=== PATIENT | female | born 1960 | race Two or more races ===

== ENCOUNTER 2024-05-10 17:39 | Inpatient (IN) | payer OTHER, MEDICAID ==
[~2024-05-10] VITALS: Ht 167.6 cm; Wt 121.1 kg
[2024-05-10 19:31] LABS: Basophils # (auto) 0.1 10 ^3/uL (0-0.2); Basophils % (auto) 1.3 % (0.0-2.0); Eosinophils # (auto) 0.3 10 ^3/uL (0-0.8); Eosinophils % (auto) 4.6 % (0.0-7.0); Hematocrit 24.4 % (36.0-46.0); Hemoglobin 8.2 g/dL (12.2-16.2); Lymphocytes # (auto) 1.1 10 ^3/uL (0.4-5.4); Lymphocytes % (auto) 15.3 % (10.0-50.0); Mean Corpuscular Hemoglobin 31.1 pg (28.0-32.0); Mean Corpuscular Hgb Conc. 33.6 g/dL (32.0-36.0); Mean Corpuscular Volume 92.7 fL (80.0-100.0); Monocytes # (auto) 0.5 10 ^3/uL (0-1.3); Monocytes % (auto) 7.5 % (0.0-12.0); Neutrophils % (auto) 71.3 % (37.0-80.0); Nucleated Red Blood Cells % 0.1 %; Red Blood Cells 2.63 10^6/uL (4.0-5.20); Red Cell Distribution Width 15.1 % (11.8-14.3)
[2024-05-10 19:34] LABS: Chloride 111 mmol/L (98-107); Sodium 141 mmol/L (136-145)
[2024-05-10 19:35] LABS: Anion Gap 8 (5-15); Carbon Dioxide 22 mmol/L (20-30)
[2024-05-10 19:36] LABS: Calcium 9.2 mg/dL (8.7-10.4)
[2024-05-10 19:40] LABS: Glucose 167 mg/dL (74-106)
[2024-05-10 19:41] LABS: BUN/Creatinine Ratio 16.1 (10.0-20.0); Blood Urea Nitrogen 72 mg/dL (9-23)
[2024-05-10 20:45] VITALS: PULSE 74; RESP 14; O2SAT 96
[2024-05-10] MEDS ORDERED: ACETAMINOPHEN 325 MG TAB PO PRN (21:15)
[2024-05-10] MEDS ORDERED: DEXTROSE (50%) 50ML SYRG IV PRN (21:15)
[2024-05-10] MEDS ORDERED: ONDANSETRON HCL 4 MG/2 ML VIAL IV PRN ×2 (21:15)
[2024-05-10] MEDS: InsuLIN REG 1unit/0.01ml Soln (100units/ml) SC SCH (22:00)
[2024-05-10] MEDS: RIVAROXABAN 2.5 MG TAB PO SCH (22:00)
[2024-05-10] MEDS: ACCU-CHEK COMFORT CURVE STRIP VI SCH (22:00)
[2024-05-10] MEDS: hydrALAZINE HCL 25 MG TAB PO SCH (22:06)
[2024-05-10] MEDS: cloNIDine HCL 0.1 MG TAB PO ONE (23:30)
[2024-05-11] VITALS (23 sets, daily range): BP systolic 101–176; BP diastolic 34–74; PULSE 41–64; RESP 11–21; TEMP 97.1–97.7; O2SAT 86–99
[2024-05-11] MEDS ORDERED: CHOL20007 PO (05:17)
[2024-05-11] MEDS ORDERED: ATOR20TA50 PO (05:21)
[2024-05-11] MEDS ORDERED: ALL100T PO (05:21)
[2024-05-11] MEDS ORDERED: HYDR50TA47 PO (05:21)
[2024-05-11] MEDS ORDERED: LINA145C OR (05:21)
[2024-05-11] MEDS ORDERED: LUBI24CA7 PO (05:21)
[2024-05-11] MEDS ORDERED: RIV20T PO (05:22)
[2024-05-11] MEDS ORDERED: PYRI1TAB3 PO (05:24)
[2024-05-11] MEDS ORDERED: SEVE800T8 PO (05:27)
[2024-05-11] MEDS ORDERED: FURO1TAB31 PO (05:27)
[2024-05-11] MEDS ORDERED: DILT120T8 PO (05:27)
[2024-05-11] MEDS ORDERED: PIO30T PO (05:27)
[2024-05-11] MEDS ORDERED: ACET-1304 PO (05:29)
[2024-05-11] MEDS ORDERED: GLIP10TA9 PO (05:29)
[2024-05-11] MEDS: InsuLIN REG 1unit/0.01ml Soln (100units/ml) SC SCH (06:16)
[2024-05-11 06:50] LABS: Basophils # (auto) 0.1 10 ^3/uL (0-0.2); Basophils % (auto) 1.5 % (0.0-2.0); Eosinophils # (auto) 0.3 10 ^3/uL (0-0.8); Eosinophils % (auto) 4.3 % (0.0-7.0); Hemoglobin 8.7 g/dL (12.2-16.2); Lymphocytes % (auto) 14.6 % (10.0-50.0); Mean Corpuscular Hemoglobin 32.2 pg (28.0-32.0); Mean Corpuscular Hgb Conc. 33.5 g/dL (32.0-36.0); Mean Corpuscular Volume 96.1 fL (80.0-100.0); Monocytes # (auto) 0.5 10 ^3/uL (0-1.3); Monocytes % (auto) 6.7 % (0.0-12.0); Neutrophils % (auto) 72.9 % (37.0-80.0); Nucleated Red Blood Cells % 0.2 %; Red Blood Cells 2.71 10^6/uL (4.0-5.20); Red Cell Distribution Width 15.9 % (11.8-14.3); White Blood Cell 6.9 10^3/uL (4.4-10.8)
[2024-05-11 07:05] LABS: Alanine Aminotransferase 11 U/L (7-40); Albumin 3.6 g/dL (3.2-4.8); Alkaline Phosphatase 113 U/L (46-116); Anion Gap 7 (5-15); Aspartate Aminotransferase 9 U/L (13-40); BUN/Creatinine Ratio 15.8 (10.0-20.0); Blood Urea Nitrogen 69 mg/dL (9-23); Calcium 9.1 mg/dL (8.5-10.1); Carbon Dioxide 21 mmol/L (20-30); Chloride 111 mmol/L (98-107); Glucose 151 mg/dL (74-106); Potassium 5.2 mmol/L (3.5-5.1); Sodium 139 mmol/L (136-145)
[2024-05-11 07:06] LABS: Bilirubin, Total 0.3 mg/dL (0.2-1.0); Total Protein 6.2 g/dL (5.7-8.2)
[2024-05-11] MEDS: SEVELAMER 800 MG TAB PO SCH (08:00)
[2024-05-11 10:49] LABS: % Iron Saturation 22.4 % (15-50)
[2024-05-11] MEDS: NIFEdipine ER 30 MG TAB PO SCH (10:50)
[2024-05-11] MEDS: dilTIAZem HCL 180MG ER CAP PO SCH (10:50)
[2024-05-11] MEDS: FUROSEMIDE 40 MG TAB PO SCH (10:51)
[2024-05-11] MEDS ORDERED: DILT-102 PO (14:19)
[2024-05-11] MEDS ORDERED: RIVA2.5T PO (14:19)
[2024-05-11] MEDS ORDERED: FURO80TA3 PO (14:19)
[2024-05-11] MEDS ORDERED: HYDR25TA88 PO (14:19)
[2024-05-11] MEDS ORDERED: LOSA-534 PO (14:32)
[2024-05-11] MEDS ORDERED: DICL5GEL TD (14:32)
[2024-05-11] MEDS ORDERED: NIFE1TAB30 PO (14:32)
[2024-05-11] MEDS ORDERED: LACT10SO60 PO (14:32)
[2024-05-11] MEDS ORDERED: ERGO1CAP12 PO (14:32)
[2024-05-11] MEDS ORDERED: CALC-606 PO (14:32)
[2024-05-11] MEDS ORDERED: METO2.5T PO (14:32)
[2024-05-11] MEDS ORDERED: SODI10PA PO (14:32)
[2024-05-11] MEDS ORDERED: [UNRECOGNIZED DRUG - CODE] PO (14:32)
[2024-05-11] MEDS ORDERED: [UNRECOGNIZED DRUG - CODE] PO (14:32)
[2024-05-11] MEDS ORDERED: LID35TP EX (14:32)
[2024-05-11 18:21] LABS: Basophils # (auto) 0.1 10 ^3/uL (0-0.2); Basophils % (auto) 1.2 % (0.0-2.0); Eosinophils # (auto) 0.4 10 ^3/uL (0-0.8); Eosinophils % (auto) 4.9 % (0.0-7.0); Hematocrit 25.5 % (36.0-46.0); Hemoglobin 8.6 g/dL (12.2-16.2); Lymphocytes % (auto) 12.1 % (10.0-50.0); Mean Corpuscular Hemoglobin 31.3 pg (28.0-32.0); Mean Corpuscular Hgb Conc. 33.7 g/dL (32.0-36.0); Monocytes # (auto) 0.5 10 ^3/uL (0-1.3); Monocytes % (auto) 6.4 % (0.0-12.0); Neutrophils # (auto) 6.2 10 ^3/uL (1.6-8.6); Neutrophils % (auto) 75.4 % (37.0-80.0); Red Blood Cells 2.74 10^6/uL (4.0-5.20); Red Cell Distribution Width 15.4 % (11.8-14.3); White Blood Cell 8.2 10^3/uL (4.4-10.8)
[2024-05-11] MEDS: ATROPINE SULF 1 MG/10ml SYR IV ONE (18:22)
[2024-05-11] MEDS: SODIUM ZIRCONIUM CYCL 10 GM PAK PO ONE (18:30)
[2024-05-11 18:41] LABS: Alanine Aminotransferase 11 U/L (7-40); Albumin 3.7 g/dL (3.2-4.8); Alkaline Phosphatase 119 U/L (46-116); Anion Gap 8 (5-15); Aspartate Aminotransferase < 8 U/L (13-40); BUN/Creatinine Ratio 16.9 (10.0-20.0); Blood Urea Nitrogen 75 mg/dL (9-23); Carbon Dioxide 20 mmol/L (20-30); Chloride 108 mmol/L (98-107); Glucose 155 mg/dL (74-106); Magnesium 1.8 mg/dL (1.6-2.6); Phosphorus 5.4 mg/dL (2.4-5.1); Potassium 5.1 mmol/L (3.5-5.1); Sodium 136 mmol/L (136-145)
[2024-05-11 18:42] LABS: Bilirubin, Total 0.3 mg/dL (0.2-1.0); Total Protein 6.3 g/dL (5.7-8.2)
[2024-05-11] MEDS: EPOETIN ALFA-EPBX 4,000 UNIT/ML VIAL SC ONE (21:20)
[2024-05-11] MEDS: SODIUM ZIRCONIUM CYCL 10 GM PAK PO SCH (21:21)
[2024-05-11] MEDS: ACETAMINOPHEN 325 MG TAB PO PRN (23:07)
[2024-05-12] VITALS (48 sets, daily range): BP systolic 104–185; BP diastolic 30–98; PULSE 40–88; RESP 10–21; TEMP 97.6–98.8; O2SAT 87–100
[2024-05-12 06:54] LABS: Basophils # (auto) 0.1 10 ^3/uL (0-0.2); Basophils % (auto) 1.1 % (0.0-2.0); Eosinophils # (auto) 0.4 10 ^3/uL (0-0.8); Eosinophils % (auto) 4.5 % (0.0-7.0); Hematocrit 25.5 % (36.0-46.0); Hemoglobin 8.5 g/dL (12.2-16.2); Lymphocytes # (auto) 1.1 10 ^3/uL (0.4-5.4); Lymphocytes % (auto) 13.4 % (10.0-50.0); Mean Corpuscular Hemoglobin 31.9 pg (28.0-32.0); Mean Corpuscular Hgb Conc. 33.3 g/dL (32.0-36.0); Mean Corpuscular Volume 95.9 fL (80.0-100.0); Monocytes # (auto) 0.7 10 ^3/uL (0-1.3); Monocytes % (auto) 8.4 % (0.0-12.0); Neutrophils # (auto) 6.1 10 ^3/uL (1.6-8.6); Neutrophils % (auto) 72.6 % (37.0-80.0); Nucleated Red Blood Cells % 0.1 %; Red Blood Cells 2.66 10^6/uL (4.0-5.20); Red Cell Distribution Width 15.8 % (11.8-14.3); White Blood Cell 8.4 10^3/uL (4.4-10.8)
[2024-05-12 07:06] LABS: Alanine Aminotransferase 11 U/L (7-40); Albumin 3.7 g/dL (3.2-4.8); Alkaline Phosphatase 120 U/L (46-116); Anion Gap 9 (5-15); Aspartate Aminotransferase < 8 U/L (13-40); BUN/Creatinine Ratio 15.7 (10.0-20.0); Bilirubin, Total 0.3 mg/dL (0.2-1.0); Blood Urea Nitrogen 75 mg/dL (9-23); Calcium 9.1 mg/dL (8.5-10.1); Carbon Dioxide 19 mmol/L (20-30); Chloride 105 mmol/L (98-107); Glucose 163 mg/dL (74-106); Sodium 133 mmol/L (136-145); Total Protein 6.3 g/dL (5.7-8.2)
[2024-05-12] MEDS: ISOPROTERENOL HCL INJECTION 1 MG in D5W 5% 250 ML IV SCH ×2 (08:21→14:30)
[2024-05-12 09:45] LABS: INR 1.05 (0.9-1.15); Partial Thromboplastin Time 28.4 SEC (24.5-34.5); Prothrombin Time 11.1 sec (9.3-11.8)
[2024-05-12 20:23] LABS: Sodium Urine 24 mmol/L (40-220)
[2024-05-12 20:26] LABS: Urine Amorphous Crystal FEW /hpf (None Seen); Urine Bacteria FEW /hpf (None Seen); Urine Blood 1+ /uL (Negative); Urine Clarity Turbid (Clear); Urine Color Colorless (Yellow); Urine Protein, UAD 3+ (Negative); Urine Specific Gravity 1.014 (1.001-1.035); Urine Urobilinogen Normal (Negative); Urine WBC 21 /hpf (0 - 5)
[2024-05-12 20:30] LABS: Amphetamine Screen, Urine Neg (NEGATIVE); Benzodiazephine Screen, Urine Neg (NEGATIVE)
[2024-05-12 20:31] LABS: Barbiturate Scree,Urine Neg (NEGATIVE); Cannabinoid Screen, Urine Neg (NEGATIVE); Cocaine Screen, Urine Neg (NEGATIVE); Creatinine, Urine 94.58 mg/dL (30.0-125.0); Opiate Scree,Urine Neg (NEGATIVE); Phencyclidine Screen, Urine Neg (NEGATIVE)
[2024-05-12 20:34] LABS: Protein, Urine 735.2 mg/dL (0.0-11.9); Urine Protein/Creatinine Ratio 7.77
[2024-05-13] VITALS (19 sets, daily range): BP systolic 140–218; BP diastolic 48–90; PULSE 67–78; RESP 14–20; TEMP 97.8–99.2; O2SAT 80–100
[2024-05-13 06:41] LABS: Basophils # (auto) 0.1 10 ^3/uL (0-0.2); Basophils % (auto) 0.8 % (0.0-2.0); Eosinophils # (auto) 0.3 10 ^3/uL (0-0.8); Eosinophils % (auto) 3.5 % (0.0-7.0); Mean Corpuscular Hgb Conc. 33.5 g/dL (32.0-36.0); Monocytes # (auto) 0.7 10 ^3/uL (0-1.3); Monocytes % (auto) 7.6 % (0.0-12.0); Red Cell Distribution Width 15.4 % (11.8-14.3)
[2024-05-13 06:42] LABS: Hematocrit 25.3 % (36.0-46.0); Hemoglobin 8.5 g/dL (12.2-16.2); Lymphocytes # (auto) 1.5 10 ^3/uL (0.4-5.4); Lymphocytes % (auto) 16.8 % (10.0-50.0); Mean Corpuscular Hemoglobin 31.2 pg (28.0-32.0); Neutrophils # (auto) 6.6 10 ^3/uL (1.6-8.6); Neutrophils % (auto) 71.3 % (37.0-80.0); Red Blood Cells 2.73 10^6/uL (4.0-5.20); White Blood Cell 9.2 10^3/uL (4.4-10.8)
[2024-05-13] MEDS: SODIUM CHL 0.9% 1000 ML BAG XX ONE (07:00)
[2024-05-13 07:02] LABS: Alanine Aminotransferase 10 U/L (7-40); Albumin 3.7 g/dL (3.2-4.8); Alkaline Phosphatase 120 U/L (46-116); Anion Gap 9 (5-15); Aspartate Aminotransferase 10 U/L (13-40); BUN/Creatinine Ratio 13.7 (10.0-20.0); Blood Urea Nitrogen 74 mg/dL (9-23); Calcium 8.8 mg/dL (8.5-10.1); Carbon Dioxide 20 mmol/L (20-30); Chloride 104 mmol/L (98-107); Glucose 130 mg/dL (74-106); Magnesium 1.9 mg/dL (1.6-2.6); Potassium 4.2 mmol/L (3.5-5.1); Sodium 133 mmol/L (136-145)
[2024-05-13 07:03] LABS: Bilirubin, Total 0.4 mg/dL (0.2-1.0); Phosphorus 6.5 mg/dL (2.4-5.1); Total Protein 6.3 g/dL (5.7-8.2)
[2024-05-13] MEDS: ANGIOMAX 250 MG VIAL IV ONE (14:34)
[2024-05-13] MEDS: MIDAZOLAM HCL 2MG/2ML 2ml VIAL (1mg/ml) ONE (14:35)
[2024-05-13] MEDS: LIDOCAINE 2%HCL (LOCAL ANESTH.) INJ 20ML MDV ONE (14:35)
[2024-05-13] MEDS: HEPARIN SODIUM (PORCINE) 5000 UNITS/ML 1ML VIAL ONE (14:35)
[2024-05-13] MEDS: IODIXANOL 320MG/ML 100ML BTL IV ONE (14:35)
[2024-05-13] MEDS: fentaNYL CITRATE 100 MCG/2 ML VL ONE (14:35)
[2024-05-13] MEDS: VERAPAMIL 2.5MG/ML INJ 2ML VIAL IV ONE (14:36)
[2024-05-13] MEDS: ceFAZolin 1GM/50ML 50 ML IV ONE (15:01)
[2024-05-13] MEDS: hydrALAZINE HCL 20 MG/ML VL IV PRN (17:26)
[2024-05-13] MEDS: EPOETIN ALFA-EPBX 4,000 UNIT/ML VIAL SC ONE (20:39)
[2024-05-14] VITALS (13 sets, daily range): BP systolic 144–185; BP diastolic 50–66; PULSE 66–79; RESP 12–19; TEMP 98.2–99.1; O2SAT 95–100
[2024-05-14 05:04] LABS: Basophils # (auto) 0.1 10 ^3/uL (0-0.2); Eosinophils # (auto) 0.3 10 ^3/uL (0-0.8); Lymphocytes # (auto) 0.6 10 ^3/uL (0.4-5.4); Monocytes # (auto) 0.6 10 ^3/uL (0-1.3); Neutrophils # (auto) 5.5 10 ^3/uL (1.6-8.6)
[2024-05-14 05:06] LABS: Basophils % (auto) 1.2 % (0.0-2.0); Eosinophils % (auto) 3.7 % (0.0-7.0); Hematocrit 24.1 % (36.0-46.0); Hemoglobin 8.3 g/dL (12.2-16.2); Lymphocytes % (auto) 8.6 % (10.0-50.0); Mean Corpuscular Hgb Conc. 34.6 g/dL (32.0-36.0); Mean Corpuscular Volume 92.4 fL (80.0-100.0); Monocytes % (auto) 8.7 % (0.0-12.0); Neutrophils % (auto) 77.8 % (37.0-80.0); Red Cell Distribution Width 14.8 % (11.8-14.3)
[2024-05-14 05:31] LABS: Alanine Aminotransferase 11 U/L (7-40); Albumin 3.4 g/dL (3.2-4.8); Alkaline Phosphatase 106 U/L (46-116); Anion Gap 8 (5-15); Aspartate Aminotransferase 8 U/L (13-40); BUN/Creatinine Ratio 11.9 (10.0-20.0); Bilirubin, Total 0.4 mg/dL (0.2-1.0); Calcium 8.7 mg/dL (8.7-10.4); Carbon Dioxide 26 mmol/L (20-30); Chloride 104 mmol/L (98-107); Glucose 94 mg/dL (74-106); Magnesium 1.9 mg/dL (1.6-2.6); Potassium 3.5 mmol/L (3.5-5.1); Sodium 138 mmol/L (136-145); Total Protein 5.8 g/dL (5.7-8.2)
[2024-05-14 05:35] LABS: Blood Urea Nitrogen 47 mg/dL (9-23)
[2024-05-14] MEDS: LACTULOSE 20Gm/30ML SOLN PO PRN (10:27)
[2024-05-14] MEDS ORDERED: diphenhdrAMINE HCL 50 MG/1 ML VL IV PRN (18:30)
[2024-05-15] VITALS (14 sets, daily range): BP systolic 129–170; BP diastolic 52–80; PULSE 64–75; RESP 17–20; TEMP 97.9–98.7; O2SAT 89–100
[2024-05-15] MEDS: diphenhdrAMINE HCL 50 MG/1 ML VL IV PRN (06:40)
[2024-05-15] MEDS: LOSARTAN POTASSIUM 50 MG TAB PO SCH (09:32)
[2024-05-16] VITALS (7 sets, daily range): BP systolic 139–168; BP diastolic 46–69; PULSE 68–77; RESP 16–20; TEMP 98.1–98.7; O2SAT 93–100
[2024-05-16] MEDS: diphenhdrAMINE HCL 50 MG/1 ML VL IV ONE (08:03)
[2024-05-16 08:43] LABS: Hepatitis B Surface Antigen Negative (Negative)
[2024-05-16 08:44] LABS: Basophils # (auto) 0 10 ^3/uL (0-0.2); Basophils % (auto) 0.3 % (0.0-2.0); Eosinophils # (auto) 0 10 ^3/uL (0-0.8); Eosinophils % (auto) 0.4 % (0.0-7.0); Hematocrit 36.6 % (36.0-46.0); Hemoglobin 11.8 g/dL (12.2-16.2); Lymphocytes # (auto) 0.9 10 ^3/uL (0.4-5.4); Lymphocytes % (auto) 13.9 % (10.0-50.0); Mean Corpuscular Hemoglobin 27.3 pg (28.0-32.0); Mean Corpuscular Hgb Conc. 32.3 g/dL (32.0-36.0); Mean Corpuscular Volume 84.4 fL (80.0-100.0); Monocytes # (auto) 0.4 10 ^3/uL (0-1.3); Monocytes % (auto) 7.3 % (0.0-12.0); Neutrophils # (auto) 4.8 10 ^3/uL (1.6-8.6); Neutrophils % (auto) 78.1 % (37.0-80.0); Nucleated Red Blood Cells % 0.1 %; Red Blood Cells 4.33 10^6/uL (4.0-5.20); Red Cell Distribution Width 19.6 % (11.8-14.3); White Blood Cell 6.2 10^3/uL (4.4-10.8)
[2024-05-16 08:49] LABS: Alanine Aminotransferase 12 U/L (7-40); Alkaline Phosphatase 51 U/L (46-116); Anion Gap 4 (5-15); Calcium 9.7 mg/dL (8.7-10.4); Carbon Dioxide 40 mmol/L (20-30); Chloride 96 mmol/L (98-107); Potassium 3.1 mmol/L (3.5-5.1); Sodium 140 mmol/L (136-145)
[2024-05-16 08:50] LABS: Glucose 273 mg/dL (74-106)
[2024-05-16 08:51] LABS: Aspartate Aminotransferase 17 U/L (13-40); BUN/Creatinine Ratio 15.6 (10.0-20.0); Blood Urea Nitrogen 15 mg/dL (9-23)
[2024-05-16 08:52] LABS: Albumin 3.8 g/dL (3.2-4.8)
[2024-05-16 08:53] LABS: Bilirubin, Total 0.5 mg/dL (0.2-1.0); Total Protein 6.5 g/dL (5.7-8.2)
[2024-05-16 09:03] LABS: Hepatitis A Ab IgM Negative; Hepatitis B Core IgM Negative
[2024-05-16 09:05] LABS: Hepatitis C Antibody Negative (Negative)
[2024-05-16] MEDS: amLODIPine BESYLATE 5 MG TAB PO ONE (09:15)
[2024-05-16] MEDS: POTASSIUM CHL 20 Meq TABLET PO SCH (09:15)
[2024-05-16] MEDS: POTASSIUM CHL 20 Meq TABLET PO ONE (09:15)
[2024-05-16] MEDS ORDERED: diphenhdrAMINE-ZINC ACETATE 1 APPLIC APPL TOP PRN (09:45)
[2024-05-16 10:04] LABS: Basophils # (auto) 0.1 10 ^3/uL (0-0.2); Basophils % (auto) 1.3 % (0.0-2.0); Eosinophils # (auto) 0.3 10 ^3/uL (0-0.8); Eosinophils % (auto) 3.9 % (0.0-7.0); Hematocrit 24.8 % (36.0-46.0); Hemoglobin 8.7 g/dL (12.2-16.2); Lymphocytes # (auto) 0.8 10 ^3/uL (0.4-5.4); Lymphocytes % (auto) 9.1 % (10.0-50.0); Mean Corpuscular Hemoglobin 32.1 pg (28.0-32.0); Mean Corpuscular Hgb Conc. 34.9 g/dL (32.0-36.0); Mean Corpuscular Volume 91.9 fL (80.0-100.0); Monocytes # (auto) 0.6 10 ^3/uL (0-1.3); Monocytes % (auto) 7.2 % (0.0-12.0); Neutrophils # (auto) 6.7 10 ^3/uL (1.6-8.6); Neutrophils % (auto) 78.5 % (37.0-80.0); Red Cell Distribution Width 14.8 % (11.8-14.3); White Blood Cell 8.5 10^3/uL (4.4-10.8)
[2024-05-16 10:31] LABS: Albumin 3.6 g/dL (3.2-4.8); Alkaline Phosphatase 116 U/L (46-116); Anion Gap 6 (5-15); Aspartate Aminotransferase < 8 U/L (13-40); BUN/Creatinine Ratio 11.9 (10.0-20.0); Bilirubin, Total 0.4 mg/dL (0.2-1.0); Calcium 8.9 mg/dL (8.7-10.4); Carbon Dioxide 26 mmol/L (20-30); Chloride 102 mmol/L (98-107); Glucose 171 mg/dL (74-106); Potassium 4.1 mmol/L (3.5-5.1); Total Protein 6.3 g/dL (5.7-8.2)
[2024-05-16 10:35] LABS: Sodium 134 mmol/L (136-145)
[2024-05-16 10:37] LABS: Alanine Aminotransferase < 9 U/L (7-40); Blood Urea Nitrogen 54 mg/dL (9-23)
[2024-05-16] MEDS: hydrALAZINE HCL 25 MG TAB PO SCH (15:30)
[2024-05-16] MEDS: diphenhdrAMINE HCL 25 MG CAP PO PRN (15:30)
[2024-05-16] MEDS: LOSARTAN POTASSIUM 50 MG TAB PO ONE (15:30)
[2024-05-17] VITALS (8 sets, daily range): BP systolic 122–159; BP diastolic 46–62; PULSE 64–79; RESP 16–19; TEMP 36.6; O2SAT 91–98
[2024-05-17 09:04] LABS: Basophils # (auto) 0.1 10 ^3/uL (0-0.2); Eosinophils # (auto) 0.4 10 ^3/uL (0-0.8); Hemoglobin 8.3 g/dL (12.2-16.2); Monocytes # (auto) 0.8 10 ^3/uL (0-1.3)
[2024-05-17 09:06] LABS: Basophils % (auto) 1.4 % (0.0-2.0); Eosinophils % (auto) 4.6 % (0.0-7.0); Hematocrit 24.4 % (36.0-46.0); Lymphocytes % (auto) 11.4 % (10.0-50.0); Mean Corpuscular Hemoglobin 31.5 pg (28.0-32.0); Mean Corpuscular Hgb Conc. 34.2 g/dL (32.0-36.0); Mean Corpuscular Volume 92.2 fL (80.0-100.0); Monocytes % (auto) 8.6 % (0.0-12.0); Neutrophils # (auto) 6.5 10 ^3/uL (1.6-8.6); Nucleated Red Blood Cells % 0.1 %; Red Blood Cells 2.65 10^6/uL (4.0-5.20); Red Cell Distribution Width 15.2 % (11.8-14.3); White Blood Cell 8.8 10^3/uL (4.4-10.8)
[2024-05-17] MEDS: LOSARTAN POTASSIUM 50 MG TAB PO SCH (09:21)
[2024-05-17 09:27] LABS: Albumin 3.6 g/dL (3.2-4.8); Alkaline Phosphatase 108 U/L (46-116); Anion Gap 7 (5-15); Aspartate Aminotransferase < 8 U/L (13-40); BUN/Creatinine Ratio 11.7 (10.0-20.0); Blood Urea Nitrogen 61 mg/dL (9-23); Calcium 8.9 mg/dL (8.7-10.4); Carbon Dioxide 25 mmol/L (20-30); Chloride 102 mmol/L (98-107); Glucose 114 mg/dL (74-106); Potassium 4.3 mmol/L (3.5-5.1); Sodium 134 mmol/L (136-145)
[2024-05-17 09:28] LABS: Bilirubin, Total 0.3 mg/dL (0.2-1.0); Total Protein 6.2 g/dL (5.7-8.2)
[2024-05-17 09:29] LABS: Alanine Aminotransferase < 9 U/L (7-40)
[2024-05-17 13:06] LABS: Magnesium 2.1 mg/dL (1.6-2.6)
[2024-05-17 13:08] LABS: Phosphorus 5.2 mg/dL (2.4-5.1)
[2024-05-17 16:58] LABS: Basophils # (auto) 0.1 10 ^3/uL (0-0.2); Eosinophils # (auto) 0.3 10 ^3/uL (0-0.8); Hemoglobin 8.3 g/dL (12.2-16.2); Lymphocytes # (auto) 0.8 10 ^3/uL (0.4-5.4); Mean Corpuscular Hgb Conc. 34.7 g/dL (32.0-36.0); Monocytes # (auto) 0.5 10 ^3/uL (0-1.3); Nucleated Red Blood Cells % 0.1 %
[2024-05-17 16:59] LABS: Basophils % (auto) 1.1 % (0.0-2.0); Eosinophils % (auto) 4.6 % (0.0-7.0); Hematocrit 23.8 % (36.0-46.0); Lymphocytes % (auto) 11.5 % (10.0-50.0); Mean Corpuscular Hemoglobin 31.8 pg (28.0-32.0); Mean Corpuscular Volume 91.6 fL (80.0-100.0); Monocytes % (auto) 7.5 % (0.0-12.0); Neutrophils # (auto) 5.2 10 ^3/uL (1.6-8.6); Neutrophils % (auto) 75.3 % (37.0-80.0); Red Cell Distribution Width 14.8 % (11.8-14.3); White Blood Cell 6.9 10^3/uL (4.4-10.8)
[2024-05-17] MEDS: SODIUM CHL 0.9% 1000 ML BAG XX ONE (18:56)
[2024-05-17] MEDS: EPOETIN ALFA-EPBX 10,000 UNIT/1ML VIAL SC ONE (20:45)
== END 2024-05-17 21:12 | disposition home or self-care (01) | DRG 291 ==
LOC: ER 17:39 → EDBD 17:39 → EAST 21:28 → OVERFLOW 21:28 → EAST 05-11 02:04 → TELE-EAST 05-11 17:43 → ICU CENTRL 05-11 18:43 → DOU IN ICU 05-13 21:24 → TELE-EAST 05-14 18:32
PROVIDERS: ADMIT Internal Medicine Pulmonary Disease; ATTEND Internal Medicine Pulmonary Disease
PROC: 5A1D70Z Performance of Urinary Filtration, Intermittent, Less than 6 Hours Per Day (ICD-10-PCS; principal; 2024-05-13)
PROC: 0JH63XZ Insertion of Tunneled Vascular Access Device into Chest Subcutaneous Tissue and Fascia, Percutaneous Approach (ICD-10-PCS; 2024-05-13)
PROC: 02H633Z Insertion of Infusion Device into Right Atrium, Percutaneous Approach (ICD-10-PCS; 2024-05-13)
PROC: B5181ZA Fluoroscopy of Superior Vena Cava using Low Osmolar Contrast, Guidance (ICD-10-PCS; 2024-05-13)
PROC: B548ZZA Ultrasonography of Superior Vena Cava, Guidance (ICD-10-PCS; 2024-05-13)
PROC: 5A1D70Z Performance of Urinary Filtration, Intermittent, Less than 6 Hours Per Day (ICD-10-PCS; 2024-05-17)
DX: I13.2 Hypertensive heart and chronic kidney disease with heart failure and with stage 5 chronic kidney disease, or end stage renal disease (principal); G93.41 Metabolic encephalopathy; I50.43 Acute on chronic combined systolic (congestive) and diastolic (congestive) heart failure; J96.21 Acute and chronic respiratory failure with hypoxia; N18.6 End stage renal disease; I69.354 Hemiplegia and hemiparesis following cerebral infarction affecting left non-dominant side; Z68.41 Body mass index [BMI] 40.0-44.9, adult; E87.1 Hypo-osmolality and hyponatremia; E87.5 Hyperkalemia; D63.1 Anemia in chronic kidney disease; E66.01 Morbid (severe) obesity due to excess calories; I16.0 Hypertensive urgency; I48.91 Unspecified atrial fibrillation; E78.5 Hyperlipidemia, unspecified; E11.51 Type 2 diabetes mellitus with diabetic peripheral angiopathy without gangrene; E87.8 Other disorders of electrolyte and fluid balance, not elsewhere classified; E87.6 Hypokalemia; E11.22 Type 2 diabetes mellitus with diabetic chronic kidney disease; Z88.5 Allergy status to narcotic agent; Z88.6 Allergy status to analgesic agent; Z79.899 Other long term (current) drug therapy; Z83.3 Family history of diabetes mellitus; Z79.01 Long term (current) use of anticoagulants; Z90.49 Acquired absence of other specified parts of digestive tract; Z91.158 Patient's noncompliance with renal dialysis for other reason
CPT/HCPCS: 36415; 36558; 70450; 71045; 76775; 77001; 80048; 80053; 80074; 80307; 81001; 82306; 82330; 82570; 82728; 82962; 83540; 83550; 83735; 83880; 83930; 83935; 83970; 84100; 84156; 84300; 84443; 84484; 85025; 85610; 85730; 86850; 86900; 86901; 87081; 87086; 90935; 93005; 93306; 93970; 96372; 97110; 97116; 97163; 99152; 99291; C1894; G0378; J1642; J1815; J2250; J7060; Q9967